=== PATIENT | male | born 1945 | race Caucasian/White ===

== ENCOUNTER 2019-03-26 21:22 | Emergency (ER) | payer MEDICARE ==
[2019-03-26 21:54] LABS: BILIRUBIN,URINE NEGATIVE (NEGATIVE); GLUCOSE, URINE (UA) 100 mg/dL (NEGATIVE); KETONES,URINE (UA) NEGATIVE (NEGATIVE); LEUKOCYTE ESTERASE, URINE NEGATIVE (NEGATIVE); NITRITE,URINE NEGATIVE (NEGATIVE); OCCULT BLOOD,URINE SMALL (NEGATIVE); PROTEIN,URINE NEGATIVE (NEGATIVE); UROBILINOGEN,URINE 1 (NORMAL) E.U./dL (NORMAL)
[2019-03-26 21:56] LABS: CLARITY,URINE HAZY (CLEAR)
--- NOTE | 2019-03-26 21:59 | ED Physician Documentation ---
PD HPI ABD PAIN - Stated complaint Stated Complaint: ABD/BACK PX - Chief complaint Chief Complaint: Abd Pain - History obtained from History obtained from: Patient - History of Present Illness Timing - onset: Today (since about 10 am. Was starting drive from their home in [place] to visit up here. Right abd/flank pain started and got worse. He had drive. Pain persisted past arrival here, so came for evaluation.) Quality: Cramping, Aching, Pain Location: RLQ Radiation: Right flank Improved by: No: Eating, Laying still, Position Worsened by: No: Eating, Moving, Breathing, Position Associated symptoms: Nausea. No: Fever, Vomiting, Diarrhea, Dysuria, Chest pain, Near syncope / syncope Similar symptoms before: Has not had sx before Review of Systems Constitutional: denies: Fever, Chills Nose: denies: Rhinorrhea / runny nose, Congestion Throat: denies: Sore throat Respiratory: denies: Cough GI: reports: Abdominal Pain, Nausea. denies: Abdominal Swelling, Vomiting, Constipation, Diarrhea : denies: Dysuria, Frequency Musculoskeletal: denies: Extremity pain Neurologic: denies: Generalized weakness, Near syncope PD PAST MEDICAL HISTORY - Past Medical History Cardiovascular: Hypertension, High cholesterol : Benign prostate hypertrophy - Past Surgical History Cardiovascular: Pacemaker - Present Medications Home Medications: Ambulatory Orders Medication Instructions Recorded Confirmed Atorvastatin [Lipitor] 0 mg PO DAILY 03/26/19 03/26/19 Clopidogrel [Plavix] 0 mg PO DAILY 03/26/19 03/26/19 Doxazosin [Cardura] 0 mg PO DAILY 03/26/19 03/26/19 Finasteride 0 mg PO DAILY 03/26/19 03/26/19 Ondansetron Odt [Zofran] 4 mg TL Q6H PRN #10 tablet 03/27/19 dexAMETHasone [Decadron] 4 mg PO DAILY #5 tablet 03/27/19 oxyCODONE [Roxicodone] 5 mg PO Q4-6H PRN #20 tablet 03/27/19 - Allergies Allergies/Adverse Reactions: Allergies Allergy/AdvReac Type Severity Reaction Status Date / Time No Known Drug Allergies Allergy Verified 03/26/19 21:39 PD ED PE NORMAL - Vitals Vital signs reviewed: Yes - General General: Alert and oriented X 3, Well developed/nourished - Cardiac Cardiac: RRR, No murmur - Respiratory Respiratory: Clear bilaterally - Abdomen Abdomen: Soft, Non tender - Male Male : Deferred - Rectal Rectal: Deferred - Back Back: Other (right CVA tenderness) - Derm Derm: Normal color, Warm and dry - Extremities Extremities: Normal ROM s pain, No edema, No calf tenderness / cord - Neuro Neuro: Alert and oriented X 3, No motor deficit, Normal speech Results - Vitals Vitals: Vital Signs - 24 hr 03/26/19 03/27/19 21:36 00:19 Temperature 36.9 C Heart Rate 73 61 Respiratory 18 14 Rate Blood Pressure 175/93 H 134/77 H O2 Saturation 97 96 Oxygen O2 Source Room air - Labs Labs: Laboratory Tests 03/26/19 03/26/19 03/26/19 21:49 22:37 22:37 WBC 9.7 RBC 4.53 L Hgb 14.6 Hct 43.5 MCV 96.0 H MCH 32.2 H MCHC 33.6 RDW 12.1 Plt Count 194 MPV 8.5 Neut # (Auto) 8.1 H Lymph # (Auto) 0.8 L Harlan # (Auto) 0.6 Eos # (Auto) 0.1 Baso # (Auto) 0.0 Absolute Nucleated RBC 0.00 Nucleated RBC % 0.0 Sodium 139 Potassium 4.0 Chloride 104 Carbon Dioxide 26 Anion Gap 9.0 BUN 18 Creatinine 1.2 Estimated GFR (MDRD) 60 L Glucose 154 H Calcium 9.4 Total Bilirubin 0.8 AST 28 ALT 32 Alkaline Phosphatase 71 Total Protein 7.6 Albumin 4.6 Globulin 3.0 Albumin/Globulin Ratio 1.5 Lipase 48 Urine Color YELLOW Urine Clarity HAZY Urine pH 6.0 Ur Specific [place] 1.025 Urine Protein NEGATIVE Urine Glucose (UA) 100 H Urine Ketones NEGATIVE Urine Occult Blood SMALL H Urine Nitrite NEGATIVE Urine Bilirubin NEGATIVE Urine Urobilinogen 1 (NORMAL) Ur Leukocyte Esterase NEGATIVE Urine RBC 0-5 Urine WBC 0-3 Ur Squamous Epith Cells NONE SEEN Urine Bacteria None Seen Ur Microscopic Review INDICATED Urine Culture Comments NOT INDICATED - Rads (name of study) abd CT Radiology: Prelim report reviewed (4.86 mm stone at the distal right ureter with some moderate hydro-nephrosis and hydroureter. No other acute abnormality.), See rad report PD MEDICAL DECISION MAKING - ED course Complexity details: reviewed results (CT showing 4-5mm distal right ureteral stone), re-evaluated patient (He is feeling significantly improved which is still 1 out of 10 level of pain and feels comfortable for discharge.), considered differential, d/w patient Departure - Departure Disposition: 01 Home, Self Care Clinical Impression: Right sided abdominal pain, Ureterolithiasis Condition: Stable Record reviewed to determine appropriate education?: Yes Instructions: ED Stone Renal W Colic Prescriptions: dexAMETHasone [Decadron] 4 mg PO DAILY #5 tablet Ondansetron Odt [Zofran] 4 mg TL Q6H PRN #10 tablet PRN Reason: Nausea / Vomiting oxyCODONE [Roxicodone] 5 mg PO Q4-6H PRN #20 tablet PRN Reason: Pain Comments: Continue usual medications. Stay well-hydrated. Use ondansetron if needed for nausea. Decadron steroid anti-inflammatory daily for several more days until th is stone passes. Add Tylenol 500 mg 4 times a day for the next several days and to that add oxycodone every 4 hours if needed for pain. Recheck if not improved over the next several days return sooner if worsening symptoms despite the above medications. We can give you a disc of your images to bring back home for follow-up. The majority of stones of this size will pass within the next couple of days. Discharge Date/Time: 03/27/19 00:36
[2019-03-26 22:04] LABS: BACTERIA,URINE None Seen /HPF (None Seen); RBC,URINE 0-5 /HPF (0-5); SQUAMOUS EPITHELIAL CELL,UR NONE SEEN (<= Few)
[2019-03-26] MEDS ORDERED: SODIUM CHLORIDE 0.9% 1,000 ML IV ONE (22:16)
[2019-03-26] MEDS ORDERED: ONDANSETRON 4 MG/2 ML VIAL IVP STA (22:17)
[2019-03-26] MEDS ORDERED: KETOROLAC 30 MG/ML VIAL IVP STA (22:17)
[2019-03-26] MEDS ORDERED: HYDROmorphone 2 MG/ML VIAL IVP STA (22:17)
[2019-03-26 22:49] LABS: BASOPHILS % (AUTO) 0.4 %; EOSINOPHILS # (AUTO) 0.1 10^3/uL (0.0-0.7); EOSINOPHILS % (AUTO) 0.6 %; HGB - HEMOGLOBIN 14.6 g/dL (14.0-18.0); LYMPHOCYTES # (AUTO) 0.8 10^3/uL (1.5-3.5); LYMPHOCYTES % (AUTO) 8.7 %; MEAN CORPUSCULAR HEMOGLOBIN 32.2 pg (27.0-31.0); MEAN CORPUSCULAR HGB CONC 33.6 g/dL (32.0-36.0); MEAN PLATELET VOLUME 8.5 fL (7.4-11.4); MONOCYTES # (AUTO) 0.6 10^3/uL (0.0-1.0); MONOCYTES % (AUTO) 6.1 %; NEUTROPHILS # (AUTO) 8.1 10^3/uL (1.5-6.6); NEUTROPHILS % (AUTO) 83.7 %; PLT - PLATELET COUNT 194 10^3/uL (130-450); RED BLOOD COUNT 4.53 10^6/uL (4.70-6.10); RED CELL DISTRIBUTION WIDTH 12.1 % (12.0-15.0); WHITE BLOOD COUNT 9.7 x10^3/uL (4.8-10.8)
--- NOTE | 2019-03-26 22:57 | CT Report ---
Reason: right abd/flank pain today Procedure Date: 03/26/2019 Accession Number: [id number] / [id number] Procedure: CT - Abdomen/Pelvis WO CPT Code: Final Report FULL RESULT: EXAM: CT ABDOMEN AND PELVIS (CT KUB) EXAM DATE: 03/26/2019 10:31 PM. CLINICAL HISTORY: Right abd/flank pain today. COMPARISONS: None. TECHNIQUE: Routine axial helical CT imaging was performed through the abdomen and pelvis without IV contrast. Reconstructions: Coronal and sagittal. In accordance with CT protocol optimization, one or more of the following dose reduction techniques were utilized for this exam: automated exposure control, adjustment of mA and/or KV based on patient size, or use of iterative reconstructive technique. FINDINGS: Lung Bases: Small hiatal hernia. Right Kidney/Ureter: Right hydronephrosis and hydroureter, with perinephric stranding. A 5 mm calculus in the distal right ureter. No additional upper tract calculus. Left Kidney/Ureter: No stones, hydronephrosis, or hydroureter. No perinephric fat stranding. Other Solid Organs: Multiple hypodensities in the liver, likely representing cysts. The spleen, pancreas and adrenal glands appear unremarkable. Gallbladder/Bile Ducts: Hyperdense material dependently in the gallbladder, likely representing cholelithiasis. No biliary dilatation. Peritoneal Cavity: No free fluid, free air or jessica adenopathy. Bowel is grossly unremarkable. Pelvic Organs: The urinary bladder appears unremarkable. The prostate is prominent. No free fluid or pelvic adenopathy. Vasculature: Atherosclerotic calcifications. No aneurysm. Other: None. IMPRESSION: 5 mm calculus in the distal right ureter, producing right hydronephrosis. [facility]
[2019-03-26 23:03] LABS: ALBUMIN 4.6 g/dL (3.2-5.5); ALBUMIN/GLOBULIN RATIO 1.5 (1.0-2.2); BILIRUBIN,TOTAL 0.8 mg/dL (0.2-1.0); CALCIUM 9.4 mg/dL (8.5-10.3); CREATININE 1.2 mg/dL (0.6-1.2); TOTAL PROTEIN 7.6 g/dL (6.7-8.2)
[2019-03-26] MEDS ORDERED: DEXAMETHASONE 10 MG/ML VIAL IVP STA (23:52)
[2019-03-26] MEDS ORDERED: oxyCODONE/ACET 5/325 Prepack 4 PO STA (23:52)
[2019-03-26] MEDS ORDERED: ONDANSETRON ODT 4 MG Prepack 2 TL PRN (23:52)
[2019-03-27 00:19] VITALS: BP 134/77
== END 2019-03-27 00:36 | disposition home or self-care (01) ==
LOC: ED 21:22
DX: N20.1 Calculus of ureter (principal); I10 Essential (primary) hypertension; E78.00 Pure hypercholesterolemia, unspecified
CPT/HCPCS: 36415; 74176; 80053; 81001; 83690; 85025; 96361; 96374; 96375; 99284; 99285; J1170; 81003; 87086